=== PATIENT | male | born 1975 | race Caucasian/White ===

== ENCOUNTER 2021-02-24 09:00 | Outpatient (CLI) | payer OTHER | END 2021-02-24 09:15 | disposition home or self-care (01) | LOC: PPH VACUNA 09:00 | PROVIDERS: ATTEND Emergency Medicine Pediatric Emergency Medicine | DX: Z23 Encounter for immunization (principal) ==

== ENCOUNTER 2022-07-12 07:52 | Emergency (ER) | payer OTHER ==
[~2022-07-12] VITALS: Ht 180.3 cm; Wt 93.0 kg
== END 2022-07-12 11:31 | disposition home or self-care (01) ==
LOC: ER 07:52
DX: M54.9 Dorsalgia, unspecified (principal)